=== PATIENT | male | born 1985 | race Two or more races ===

== ENCOUNTER 2016-09-09 17:02 | Emergency (ER) | payer SELFPAY ==
[2016-09-09 18:38] LABS: CALCIUM 9.3 mg/dL (8.6-10.3)
--- NOTE | 2016-09-09 18:39 | CT ---
Exam: CT head without contrast COMPARISON: None INDICATION: Headache. TECHNIQUE: CT examination of the head was obtained without contrast. FINDINGS: There is no acute intracranial hemorrhage. There is no abnormal intra or extra-axial fluid collection. There is no edema, mass effect or midline shift. Ventricles are normal in size. Visualized paranasal sinuses and mastoid air cells are well aerated. IMPRESSION: No acute intracranial abnormality. Report was uploaded to the EMR at 1835 hours 09/09/2016.
[2016-09-09 18:56] LABS: BASO % 0.6 % (0.2-1.0); EOS % 0.3 % (0.9-2.9); HEMATOCRIT 49.5 % (32.0-52.0); HEMOGLOBIN 16.6 gm/l (14.0-18.0); IMM NEUT% 0.3 % (0-1); LYMPH # 0.9 (1.0-4.8); LYMPH % 13.9 % (15-45); MEAN CELL VOLUME 87.8 fl (80.0-94.0); MEAN CORPUSCULAR HEMOGLOBIN 29.4 pg (27.0-31.0); MEAN CORPUSCULAR HGB CONC 33.5 g/dl (33.0-37.0); MONO # 0.3 (0.0-0.8); MONO % 4.6 % (4-12); NEUT % 80.3 % (43-75); PLATELET COUNT 204 K/mm3 (130-400); RED CELL DISTRIBUTION WIDTH 12.5 % (11.5-14.5)
[2016-09-09] MEDS ORDERED: ONDANSETRON 4 MG ODT TAB ONE (19:47)
== END 2016-09-09 20:11 | disposition home or self-care (01) ==
LOC: ED 17:02
DX: R51 Headache (principal); R11.0 Nausea
CPT/HCPCS: 85025; 80048; 70450; 99283 ×2; A9270